=== PATIENT | female | born 1975 | race Caucasian/White ===

== ENCOUNTER 2017-06-29 08:50 | Emergency (ER) | payer OTHER ==
[2017-06-29 08:59] VITALS: RESP 20
[2017-06-29] MEDS ORDERED: IPRATROPIUM-ALBUTEROL 3 ML NEB INHALATION STA (09:08)
--- NOTE | 2017-06-29 09:12 | ED ---
General Adult HPI - General Chief complaint: Shortness of Breath Stated complaint: Difficulty Breathing Time Seen by Provider: 06/29/17 09:02 Source: patient, family, RN notes reviewed Mode of arrival: ambulatory Limitations: physical limitation - History of Present Illness Initial comments: 41-year-old female presents to the emergency department with a chief complaint of cough. Patient states she's been coughing for the last 2 days. Patient states that she is not coughing anything up. Patient states she has felt hot and cold throughout this time. Patient does admit to history of smoking. She denies any long trips or travels any leg swelling. Patient states that she has had this in the past and she had an infection. Patient was concerned because her symptoms just do not seem to be getting better. Patient has no other complaints at this time. Patient denies any recent chest pain, back pain, abdominal pain, nausea vomiting, numbness or tingling, dysuria or hematuria, constipation or diarrhea, headaches or visual changes, or any other current symptoms. - Related Data Home Medications Medication Instructions Recorded Confirmed Ergocalciferol (Vitamin D2) 50,000 unit PO MO 06/29/17 06/29/17 [Vitamin D2] Gabapentin [Neurontin] 300 mg PO TID 06/29/17 06/29/17 HYDROcodone/APAP 10-325MG [Chrisney 1 tab PO BID 06/29/17 06/29/17 10-325] Levothyroxine Sodium [Synthroid] 100 mcg PO DAILY 06/29/17 06/29/17 tiZANidine [Zanaflex] 4 mg PO TID 06/29/17 06/29/17 Previous Rx's Medication Instructions Recorded Albuterol Inhaler [Ventolin Hfa 1 - 2 puff INHALATION Q4-6H PRN #1 06/29/17 Inhaler] inhaler predniSONE 50 mg PO DAILY #5 tab 06/29/17 Allergies Allergy/AdvReac Type Severity Reaction Status Date / Time codeine AdvReac Nausea Verified 06/29/17 09:13 Review of Systems ROS Statement: Those systems with pertinent positive or pertinent negative responses have been documented in the HPI. ROS Other: All systems not noted in ROS Statement are negative. Past Medical History Past Medical History: No Reported History History of Any Multi-Drug Resistant Organisms: None Reported Past Surgical History: No Surgical Hx Reported Smoking Status: Current every day smoker Past Alcohol Use History: None Reported Past Drug Use History: None Reported General Exam - General Exam Comments Initial Comments: General exam: Alert, active, comfortable in no apparent distress Head: Normocephalic Eyes: Normal reaction of pupils, equal size, normal range of extraocular motion Ears: normal external ear canals, pink tympanic membranes with normal cone of light Nose: clear with pink turbinates Throat: no erythema or exudates with normal sized tonsils Neck: no masses, no nuchal rigidity Chest: no chest wall deformity Lungs: equal air entry with no crackles mild wheezing and diminished CVS: S1 and S2 normal with no audible mumurs, regular rhythm Spine: no scoliosis or deformity Skin: no rashes Neurological: No focal deficits, tone is normal in all 4 extremities Limitations: physical limitation Course Vital Signs 06/29/17 06/29/17 06/29/17 08:55 09:35 09:43 Temperature 97.9 F Pulse Rate 95 95 90 Respiratory 20 20 Rate Blood Pressure 121/68 O2 Sat by Pulse 95 Oximetry Medical Decision Making - Medical Decision Making 41-year-old female who is a smoker presents for cough and shortness of breath. This time patient does have a minimal wheeze on exam. At this time patient is improved with the breathing treatment and she is feeling better. Patient is perk negative. This and we discussed patient's symptoms are most consistent with acute bronchitis. We discussed follow-up return parameters all patient's questions. She stated she understood and she is in agreement with plan. I have answered. She'll be discharged. - Radiology Data Radiology results: report reviewed, image reviewed Disposition Clinical Impression: Acute bronchitis Disposition: HOME SELF-CARE Condition: Stable Instructions: Acute Bronchitis (ED) Additional Instructions: Please use medication as discussed. Please follow up with family doctor if symptoms have not improved over the next two days. Please return to the emergency room if your symptoms increase or worsen or for any other concerns. Prescriptions: Albuterol Inhaler [Ventolin Hfa Inhaler] 1 - 2 puff INHALATION Q4-6H PRN #1 inhaler PRN Reason: Cough predniSONE 50 mg PO DAILY #5 tab Referrals: Joel Villareal DO [Primary Care Provider] - 1-2 days Time of Disposition: 09:56
--- NOTE | 2017-06-29 09:43 | XR ---
EXAMINATION TYPE: XR chest 2V DATE OF EXAM: 06/29/2017 COMPARISON: NONE HISTORY: Dyspnea TECHNIQUE: Frontal and lateral views of the chest are obtained. FINDINGS: There is slightly elevated left hemidiaphragm. There is no focal air space opacity, pleural effusion, or pneumothorax seen. The cardiac silhouette size is within normal limits. The osseous structures are intact. IMPRESSION: No acute cardiopulmonary process.
[2017-06-29 10:13] VITALS: BP 135/44; PULSE 78; TEMP 98.4
== END 2017-06-29 10:18 | disposition home or self-care (01) ==
LOC: EC 08:50
DX: J20.9 Acute bronchitis, unspecified (principal); R06.02 Shortness of breath; F17.200 Nicotine dependence, unspecified, uncomplicated; Z79.891 Long term (current) use of opiate analgesic; Z79.899 Other long term (current) drug therapy; Z88.5 Allergy status to narcotic agent
CPT/HCPCS: 71020; 94640; 99285